=== PATIENT | male | born 1995 | race Caucasian/White ===

== ENCOUNTER → 2021-06-17 | Outpatient (CLI) | payer BC ==
[2021-06-17 15:33] LABS: CALCIUM 9.4 mg/dL (8.4-10.2); CREATININE, serum 0.86 (0.66-1.25)
== END ==
LOC: COL.LAB
PROVIDERS: Student in an Organized Health Care Education/Training Program
DX: K21.9 Gastro-esophageal reflux disease without esophagitis (principal); M54.5 Low back pain

== ENCOUNTER → 2021-06-18 | Outpatient (CLI) | payer BC | LOC: COL.RAD 07:11 | DX: M54.5 Low back pain (principal) | CPT/HCPCS: Q9967 ==